=== PATIENT | female | born 1935 | race Caucasian/White ===

== ENCOUNTER 2017-06-11 11:27 | Outpatient (CLI) | payer OTHER | END 2017-06-11 11:52 | disposition home or self-care (01) | LOC: LAB 11:27 | DX: D3A.092 Benign carcinoid tumor of the stomach (principal); E53.8 Deficiency of other specified B group vitamins; D89.0 Polyclonal hypergammaglobulinemia; K92.89 Other specified diseases of the digestive system; E55.9 Vitamin D deficiency, unspecified; E11.9 Type 2 diabetes mellitus without complications; E03.8 Other specified hypothyroidism; E78.00 Pure hypercholesterolemia, unspecified; I10 Essential (primary) hypertension; N39.0 Urinary tract infection, site not specified; R31.29 Other microscopic hematuria; D70.8 Other neutropenia; B34.9 Viral infection, unspecified; E78.2 Mixed hyperlipidemia; E53.9 Vitamin B deficiency, unspecified ==

== ENCOUNTER 2017-06-13 10:12 | Outpatient (CLI) | payer OTHER | END 2017-06-13 12:00 | disposition home or self-care (01) | LOC: SONOGRAMA 10:12 | DX: D3A.092 Benign carcinoid tumor of the stomach (principal) ==

== ENCOUNTER 2017-12-26 09:14 | Outpatient (CLI) | payer OTHER | END 2017-12-26 09:24 | disposition home or self-care (01) | LOC: LAB 09:14 | DX: D47.2 Monoclonal gammopathy (principal); E03.8 Other specified hypothyroidism; B34.9 Viral infection, unspecified; E11.9 Type 2 diabetes mellitus without complications; E78.2 Mixed hyperlipidemia; E83.89 Other disorders of mineral metabolism ==

== ENCOUNTER 2017-12-26 10:04 | Outpatient (CLI) | payer OTHER | END 2017-12-26 15:06 | disposition home or self-care (01) | LOC: SONOGRAMA 10:04 → MAMO-SONO 10:15 → SONOGRAMA 15:06 | DX: R16.0 Hepatomegaly, not elsewhere classified (principal) ==

== ENCOUNTER 2017-12-29 09:01 | Outpatient (CLI) | payer OTHER | END 2017-12-29 09:10 | disposition home or self-care (01) | LOC: LAB 09:01 | DX: D47.2 Monoclonal gammopathy (principal); E03.8 Other specified hypothyroidism ==

== ENCOUNTER 2018-02-04 10:20 | Outpatient (CLI) | payer OTHER | END 2018-02-04 10:26 | disposition home or self-care (01) | LOC: NUCLEAR 10:20 | DX: M81.0 Age-related osteoporosis without current pathological fracture (principal) ==

== ENCOUNTER → 2018-10-20 09:52 | Outpatient (CLI) | payer OTHER | END | disposition home or self-care (01) | LOC: LAB 09:52 | DX: E03.8 Other specified hypothyroidism (principal); I10 Essential (primary) hypertension; D51.3 Other dietary vitamin B12 deficiency anemia; E55.9 Vitamin D deficiency, unspecified; E78.00 Pure hypercholesterolemia, unspecified; R31.29 Other microscopic hematuria; D37.9 Neoplasm of uncertain behavior of digestive organ, unspecified ==

== ENCOUNTER 2019-02-26 10:15 | Outpatient (CLI) | payer OTHER | END 2019-02-26 10:30 | disposition home or self-care (01) | LOC: LAB 10:15 | DX: E16.4 Increased secretion of gastrin (principal); E78.00 Pure hypercholesterolemia, unspecified; D70.8 Other neutropenia; E55.9 Vitamin D deficiency, unspecified; R31.29 Other microscopic hematuria; E03.8 Other specified hypothyroidism; M06.89 Other specified rheumatoid arthritis, multiple sites ==

== ENCOUNTER 2019-03-12 09:19 | Outpatient (CLI) | payer OTHER | END 2019-03-12 14:51 | disposition home or self-care (01) | LOC: LAB 09:19 | DX: D3A.8 Other benign neuroendocrine tumors (principal); D37.8 Neoplasm of uncertain behavior of other specified digestive organs ==

== ENCOUNTER → 2019-03-18 | Outpatient (CLI) | payer OTHER | END | disposition home or self-care (01) | LOC: TOM 07:30 | DX: D3A.8 Other benign neuroendocrine tumors (principal); D37.8 Neoplasm of uncertain behavior of other specified digestive organs | CPT/HCPCS: 74177; Q9965 ==

== ENCOUNTER → 2019-06-18 | Emergency (ER) | payer OTHER ==
[~2019-06-18] VITALS: Ht 157.5 cm; Wt 58.5 kg
== END | disposition home or self-care (01) ==
LOC: ER 12:34
DX: R53.81 Other malaise (principal); M25.511 Pain in right shoulder

== ENCOUNTER 2021-06-29 10:46 | Outpatient (CLI) | payer OTHER | END 2021-06-29 10:47 | disposition home or self-care (01) | LOC: LAB 10:46 | PROVIDERS: ATTEND Internal Medicine Hematology & Oncology | DX: E03.9 Hypothyroidism, unspecified (principal); I10 Essential (primary) hypertension; E55.9 Vitamin D deficiency, unspecified; E78.00 Pure hypercholesterolemia, unspecified; R31.9 Hematuria, unspecified; D70.9 Neutropenia, unspecified ==

== ENCOUNTER → 2021-07-03 11:59 | Outpatient (CLI) | payer OTHER | END | disposition home or self-care (01) | LOC: NUCLEAR 11:45 | PROVIDERS: ATTEND Internal Medicine Hematology & Oncology | DX: M81.0 Age-related osteoporosis without current pathological fracture (principal) ==

== ENCOUNTER 2022-07-08 09:33 | Outpatient (CLI) | payer OTHER | END 2022-07-08 09:34 | disposition home or self-care (01) | LOC: NUCLEAR 09:33 | PROVIDERS: ATTEND Internal Medicine | DX: R55 Syncope and collapse (principal) ==

== ENCOUNTER 2022-07-08 14:24 | Outpatient (CLI) | payer OTHER | END 2022-07-08 14:30 | disposition home or self-care (01) | LOC: TOM 14:24 | PROVIDERS: ATTEND Internal Medicine | DX: R55 Syncope and collapse (principal) ==

== ENCOUNTER → 2022-07-08 15:19 | Outpatient (CLI) | payer OTHER | END | disposition home or self-care (01) | LOC: LAB 09:37 | PROVIDERS: ATTEND Internal Medicine | DX: E11.9 Type 2 diabetes mellitus without complications (principal); E03.9 Hypothyroidism, unspecified; D64.9 Anemia, unspecified; E78.2 Mixed hyperlipidemia; N39.0 Urinary tract infection, site not specified; E55.9 Vitamin D deficiency, unspecified; E03.8 Other specified hypothyroidism; E53.8 Deficiency of other specified B group vitamins ==

== ENCOUNTER 2022-10-09 09:21 | Outpatient (CLI) | payer OTHER | END 2022-10-09 09:29 | disposition home or self-care (01) | LOC: LAB 09:21 | PROVIDERS: ATTEND Internal Medicine Gastroenterology | DX: R10.9 Unspecified abdominal pain (principal); B82.9 Intestinal parasitism, unspecified; R62.50 Unspecified lack of expected normal physiological development in childhood; E03.9 Hypothyroidism, unspecified; E78.5 Hyperlipidemia, unspecified ==

== ENCOUNTER 2022-10-09 09:50 | Outpatient (CLI) | payer OTHER | END 2022-10-09 10:00 | disposition home or self-care (01) | LOC: SONOGRAMA 09:50 | PROVIDERS: ATTEND Internal Medicine Gastroenterology | DX: R10.9 Unspecified abdominal pain (principal) ==